=== PATIENT | male | born 1965 | race Caucasian/White ===

== ENCOUNTER 2017-12-11 11:03 | Observation (INO) ==
--- NOTE | 2017-12-11 11:27 | ED ---
HPI General Chief complaint: Eye Problems Stated complaint: Eye complaint/Evac Time Seen by Provider: 12/11/17 11:15 Source: patient Mode of arrival: EMS Limitations: no limitations History of Present Illness HPI Narrative: 52-year-old male presents the ED via EMS for evaluation of left eye pain. Onset just before arrival. 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 He states that he struck a piece of wood with a hammer and a large piece of the wood hit him in the face and the eye. He was not wearing prescription or safety glasses. On presentation he complains of 10/10 left eye pain, worse with ocular motion. He endorses photophobia. He endorses mild headache. He is unsure of the date of his last tetanus immunization. He denies chronic health problems and takes no daily medications. He admits that it has been years since he saw doctor. No treatment attempted before arrival. MD chief complaint: eye pain Onset description: sudden Duration: constant Location: left eye Eye Symptoms: burning, pain, foreign body sensation, blurry vision and photophobia Place: work Mechanism: direct trauma Severity: severe Severity scale (1-10): 10 If Pain, Quality: sharp Context: trauma Treatments Prior to Arrival: none Related Data Home Medications Medication Instructions Recorded Confirmed No Known Home Medications 12/11/17 12/11/17 Previous Rx's Medication Instructions Recorded amoxicillin-pot clavulanate 1 tab PO BID 14 Days #28 tab 12/12/17 [Augmentin] hydrocodone-acetaminophen 1 tab PO Q4H PRN #18 tab 12/12/17 Allergies Allergy/AdvReac Type Severity Reaction Status Date / Time No Known Allergies Allergy Verified 12/11/17 15:43 [facility] Medical History Medical History Patient denies medical problems (Acute) Social History Social History Substance History: Active Abuse and Unable to Obtain Second Hand Smoke Exposure: Yes Smoking Status: Current every day smoker Tobacco Type: Cigarettes Packs Per Day: 0.5 Cigarettes Per Day: 10.0 Years Smoked: 10 Pack-Years: 5.00 How Often Do You Have a Drink Containing Alcohol: Unable to Obtain (Patient answered "not much" and refused any further questioning.) Recent Travel in [facility] within the Last 8 Weeks: No Recent Out of Country Travel within the Last 8 Weeks: No Exam Narrative Exam Narrative: GENERAL: Well-nourished, well-developed anxious white male in no acute distress. SKIN: Warm and dry. HEAD: Normocephalic. Edema and ecchymosis below the left eye. EYES: No scleral icterus. PERRLA. EOMI. FOCUSED OS EXAM: There is a 1-2 mm sharp foreign body projecting into the eye near the pupil, slightly towards the 6 o'clock position. Exam limited due to the patient's pain. Please see Dr. Schroeder's note for full eye exam. ENT: Pearly mullins tympanic membranes bilaterally. Nasal mucosa is moist. Oropharynx without erythema, edema or exudate. NECK: Supple, trachea midline. No JVD or lymphadenopathy. CARDIOVASCULAR: Regular rate and rhythm without murmurs, gallops, or rubs. RESPIRATORY: Breath sounds clear and equal bilaterally. No accessory muscle use. GASTROINTESTINAL: Abdomen soft, non-tender, nondistended. + Bowel sounds MUSCULOSKELETAL: No cyanosis, or edema. Walks with a normal gait. Moves extremities spontaneously. BACK: Nontender without obvious deformity. No CVA tenderness. Course Initial Documented Vital Signs Temperature 97.8 F 12/11/17 11:15 Pulse Rate 68 12/11/17 11:15 Respiratory Rate 17 12/11/17 11:15 Blood Pressure 144/90 H 12/11/17 11:15 Pulse Oximetry 98 12/11/17 11:15 Last Documented Vital Signs Temperature 98.0 F 12/12/17 08:07 Pulse Rate 59 L 12/12/17 08:07 Respiratory Rate 18 12/12/17 08:59 Blood Pressure 131/74 12/12/17 08:07 Pulse Oximetry 95 12/12/17 08:07 Medical Decision Making HOSEA Attestation HOSEA supervised visit: Yes Attestation: I, Dr. Carlisle, have reviewed the advance practice practitioner's documentation and am in agreement, met with the patient face to face, made the diagnosis, and the medical decision making was done by me. *My assessment and Findings: Please see mid level provider note for full history , physical, and disposition. Patient was at work when a piece of wood flew into his L eye. He's c/o left eye pain. On exam, foreign body is visible in his left eye. c/o pain in his eye; therefore, exam somewhat limited. His EOMI and PEERL bilat. Unsure if tetanus status; therefore, will give tetanus shot, CT face/ orbits, and consult ophthalmology. [facility] Narrative Medical decision making narrative: 52-year-old male presents the ED for evaluation of left eye injury. Onset just before arrival. Patient states that he struck a piece of wood with a hammer and a large splinter bounce towards his eye. He states that he is been having 10/10 pain in the eye since then. Vitals reviewed. On exam there is periorbital edema and ecchymosis of the left eye. Left eye is injected and draining. One drop of proparacaine was applied. Patient allowed me to briefly examine the eye. There is a sharp, 1-2 mm object embedded in the surface of the eye near the pupil, slightly towards the 6 o'clock position. Exam was limited due to the patient's pain. Tetanus immunization was updated. I spoke with Dr. Schroeder, on-call package dyer. She evaluated the patient in the ED and suspects a penetrating foreign body. She plans to take the patient to the operating room. Please see her note for full details. Preoperative labs and testing was ordered. I discussed the plan with the patient who is agreeable. I spoke with the residents who agree to accept the patient to the medicine service under Dr. Barth. Please see medicine and ophthalmology notes for disposition. Lab Data Result diagrams: 12/11/17 13:00 12/12/17 04:35 Lab Results 12/11/17 12/11/17 12/11/17 Range/Units 13:00 13:00 17:50 WBC 8.3 (4.0-11.0) th/mm3 RBC 4.97 (4.50-5.90) mil/mm3 Hgb 15.5 (13.0-17.0) gm/dL Hct 46.0 (39.0-51.0) % MCV 92.6 (80.0-100.0) fL MCH 31.2 (27.0-34.0) pg MCHC 33.7 (32.0-36.0) % RDW 13.6 (11.6-17.2) % Plt Count 281 (150-450) th/mm3 MPV 7.3 (7.0-11.0) fL Neut % (Auto) 70.7 H (16.0-70.0) % Lymph % (Auto) 17.8 (9.0-44.0) % [place] % (Auto) 8.1 H (0.0-8.0) % Eos % (Auto) 2.6 (0.0-4.0) % Baso % (Auto) 0.8 (0.0-2.0) % Neut # (Auto) 5.8 (1.8-7.7) th/mm3 Lymph # (Auto) 1.5 (1.0-4.8) th/mm3 [place] # (Auto) 0.7 (0.0-0.9) th/mm3 Eos # (Auto) 0.2 (0.0-0.4) th/mm3 Baso # (Auto) 0.1 (0.0-0.2) th/mm3 WBC Differential . Differential Comment Auto diff final Sodium 140 (136-145) meq/L Potassium 5.0 (3.5-5.1) meq/L Chloride 108 H (98-107) meq/L Carbon Dioxide 21.2 (21.0-32.0) meq/L Anion Gap 11 (5-15) meq/L BUN 12 (7-18) mg/dL Creatinine 0.88 (0.60-1.30) mg/dL Estimated GFR Greater than 89 (>89) mL/min Random Glucose 110 H (74-106) mg/dL Calcium 8.7 (8.5-10.1) mg/dL Total Bilirubin 0.4 (0.2-1.0) mg/dL AST 19 (15-37) U/L ALT 24 (12-78) U/L Alkaline Phosphatase 69 (45-117) U/L Total Protein 7.6 (6.4-8.2) g/dL Albumin 3.9 (3.4-5.0) g/dL Urine Color Yellow (Yellw/Straw) Urine Clarity Clear (Clear) Urine pH 7.0 (5.0-8.5) Ur Specific Curtis 1.016 (1.002-1.035) Urine Protein Negative (Neg-Trace) mg/dL Urine Glucose (UA) Negative (Negative) mg/dL Urine Ketones Negative (Negative) mg/dL Urine Occult Blood Negative (Negative) Urine Nitrate Negative (Negative) Urine Bilirubin Negative (Negative) Urine Urobilinogen Less than 2 (Less than 2) mg/dL Ur Leukocyte Esterase Negative (Negative) Urine RBC 2 (0-3) /hpf Urine WBC 1 (0-5) /hpf Ur Squamous Epith Cells <1 (0-5) /hpf 12/12/17 Range/Units 04:35 WBC (4.0-11.0) th/mm3 RBC (4.50-5.90) mil/mm3 Hgb (13.0-17.0) gm/dL Hct (39.0-51.0) % MCV (80.0-100.0) fL MCH (27.0-34.0) pg MCHC (32.0-36.0) % RDW (11.6-17.2) % Plt Count (150-450) th/mm3 MPV (7.0-11.0) fL Neut % (Auto) (16.0-70.0) % Lymph % (Auto) (9.0-44.0) % [place] % (Auto) (0.0-8.0) % Eos % (Auto) (0.0-4.0) % Baso % (Auto) (0.0-2.0) % Neut # (Auto) (1.8-7.7) th/mm3 Lymph # (Auto) (1.0-4.8) th/mm3 [place] # (Auto) (0.0-0.9) th/mm3 Eos # (Auto) (0.0-0.4) th/mm3 Baso # (Auto) (0.0-0.2) th/mm3 WBC Differential Differential Comment Sodium 140 (136-145) meq/L Potassium 3.8 D (3.5-5.1) meq/L Chloride 107 (98-107) meq/L Carbon Dioxide 22.6 (21.0-32.0) meq/L Anion Gap 10 (5-15) meq/L BUN 9 (7-18) mg/dL Creatinine 0.87 (0.60-1.30) mg/dL Estimated GFR Greater than 89 (>89) mL/min Random Glucose 113 H (74-106) mg/dL Calcium 8.6 (8.5-10.1) mg/dL Total Bilirubin (0.2-1.0) mg/dL AST (15-37) U/L ALT (12-78) U/L Alkaline Phosphatase (45-117) U/L Total Protein (6.4-8.2) g/dL Albumin (3.4-5.0) g/dL Urine Color (Yellw/Straw) Urine Clarity (Clear) Urine pH (5.0-8.5) Ur Specific Curtis (1.002-1.035) Urine Protein (Neg-Trace) mg/dL Urine Glucose (UA) (Negative) mg/dL Urine Ketones (Negative) mg/dL Urine Occult Blood (Negative) Urine Nitrate (Negative) Urine Bilirubin (Negative) Urine Urobilinogen (Less than 2) mg/dL Ur Leukocyte Esterase (Negative) Urine RBC (0-3) /hpf Urine WBC (0-5) /hpf Ur Squamous Epith Cells (0-5) /hpf Imaging Data Radiologist's impression: ITS Impressions Face CT 12/11/17 11:43 CONCLUSION: 1. Periorbital left soft tissue swelling and some air within the post septal region. 2. No definite foreign body seen. Chest X-Ray 12/11/17 12:56 CONCLUSION: No acute Cardiopulmonary disease Discharge Plan Discharge Disposition Patient Disposition: 30 Still Patient Discharge Condition Condition: Stable Discharge Order Discharge Orders: Discharge Order (Routine); Ordered 12/12/17 Ordered By: Dhaval Vargas Discharge Details Anticipated Discharge Date: 12/12/17 Discharge Comment: Patient to follow up with Optho. today at 1 PM. Discharge Problem: Foreign body, intraocular, left eye Physicians Team ED Provider: Wandy Carlisle ED Midlevel Provider: Katerine Norwood Primary Care Provider: Primary Care Sybil Humphrey Attending Provider: Ollie Barth Other Providers: Doris Schroeder Status ED Status: Left Department Discharge Information Discharge Date/Time: 12/11/17 14:44
[2017-12-11] MEDS ORDERED: Tetanus/Diphtheria Toxoid Adult Vaccine Inj 0.5 ML Vial IM ONE (11:42)
[2017-12-11] MEDS ORDERED: Lidocaine PF 1% Inj 5 ML Syringe INFILTRATN ONE (12:34)
[2017-12-11] MEDS ORDERED: Phenylephrine/NS 1000 MCG/10ML Syringe IV.PUSH ONE (12:34)
--- NOTE | 2017-12-11 13:12 | P.CON ---
History of Present Illness Service: Ophthalmology Reason for Consult: foreign body left eye History of Present Illness: 52 yo M presents to the ED for evaluation of left eye pain. Patient states that he was at work and he struck a piece of wood with a hammer and a large piece of the wood hit him in the left eye. He was not wearing safety glasses. He complains of 10/10 left eye pain and decreased vision. No significant ocular history. [facility] - History History Provided By: Patient - Medical History Medical History: Medical History (Last Reviewed 12/11/17 @ 11:33 by Alfreda Romo) Patient denies medical problems - Surgical History Surgical History: Surgical History (Last Reviewed 12/11/17 @ 11:33 by Alfreda Romo) No history of previous surgery - Tobacco History Tobacco Use In Past 30 Days: Yes Smoking Status: Current every day smoker Tobacco Type: Cigarettes - Alcohol History How Often Do You Have a Drink Containing Alcohol: 4 or more times a week - Substance Use History Substance History: Active Abuse - Substance Use Type Marijuana Status: Active Route Used: By Mouth Reason for Use: Calm Down - Travel History Recent Travel in the [facility] Within the Last 8 Weeks: No Recent Travel Out of the Country Within the Last 8 Weeks: No - Immunization History Tetanus Immunization: >5 Years Hx Influenza Vaccine This Season: No Medications and Allergies Allergies Allergy/AdvReac Type Severity Reaction Status Date / Time No Known Allergies Allergy Unverified 12/11/17 11:14 Home Medications Medication Instructions Recorded Confirmed Type No Known Home Medications 12/11/17 12/11/17 History Physical Exam Vital signs: Vital Signs 12/11/17 11:15 12/11/17 12:31 Temperature 97.8 F Pulse Rate 68 Respiratory Rate 17 16 Blood Pressure 144/90 H Pulse Oximetry 98 Intake & Output 12/10/17 12/11/17 12/11/17 18:59 06:59 18:59 Weight 86 kg - Detailed Eye Exam Comments: Va cc at near OD 20/20, OS 20/400 EOM full OU CVF full OD, unable OS Pupils 2-1 OD, 5mm fixed OS IOP deferred Anterior exam OD - normal eyelid, C/S W&Q, K clear, AC deep, pupil round, lens clear OS - normal eyelid, conj injection with laceration inferiorly and large piece of wood embedded, K perforation centrally with piece of wood, AC deep, pupil dilated lens clear Assessment and Plan - Assessment (1) Foreign body, intraocular, left eye Code(s): S05.52XA - Penetrating wound with foreign body of left eyeball, initial encounter Status: Acute (2) Ruptured globe of left eye Code(s): S05.32XA - Ocular laceration without prolapse or loss of intraocular tissue, left eye, initial encounter Status: Acute Plan: NPO. CT Orbits. Consent for removal of foreign body and repair of ruptured globe left eye. Admit for 23 hour Obs. Start Vanc 1g BID and Unasyn 3g q6h. Scheduled for approx 8pm tonight.
--- NOTE | 2017-12-11 13:18 | XR ---
EXAM DATE: 12/11/2017 1:15 PM EDT AGE/SEX: 52 years / Male INDICATIONS: Evaluate for pneumonia,pneumothorax or communicable disease. CLINICAL DATA: This is the patient's initial encounter. Patient reports that signs and symptoms have been present for 1 day and indicates a pain score of 0/10. MEDICAL/SURGICAL HISTORY: None. None. COMPARISON: No prior exams available for comparison. FINDINGS: A single AP view of the chest demonstrates the lungs to be symmetrically aerated without evidence of mass, infiltrate or effusion. The cardiomediastinal contours are unremarkable. Osseous structures a re intact. CONCLUSION: No acute Cardiopulmonary disease Electronically signed by: Lukasz Bond MD 12/11/2017 1:17 PM EDT
[2017-12-11 13:46] LABS: Baso # (Auto) 0.1 th/mm3 (0.0-0.2); Baso % (Auto) 0.8 % (0.0-2.0); Eos # (Auto) 0.2 th/mm3 (0.0-0.4); Eos % (Auto) 2.6 % (0.0-4.0); Hemoglobin 15.5 gm/dL (13.0-17.0); Lymph # (Auto) 1.5 th/mm3 (1.0-4.8); Lymph % (Auto) 17.8 % (9.0-44.0); Mean Corpuscular HGB Conc 33.7 % (32.0-36.0); Mean Corpuscular Hemoglobin 31.2 pg (27.0-34.0); Mean Corpuscular Volume 92.6 fL (80.0-100.0); Mean Platelet Volume 7.3 fL (7.0-11.0); Mono # (Auto) 0.7 th/mm3 (0.0-0.9); Mono % (Auto) 8.1 % (0.0-8.0); Neut # (Auto) 5.8 th/mm3 (1.8-7.7); Neut % (Auto) 70.7 % (16.0-70.0); Platelet Count 281 th/mm3 (150-450); Red Blood Count 4.97 mil/mm3 (4.50-5.90); Red Cell Distribution Width 13.6 % (11.6-17.2); White Blood Count 8.3 th/mm3 (4.0-11.0)
--- NOTE | 2017-12-11 13:48 | P.HPFP ---
History of Present Illness Primary Care Physician: No Primary Care Physician <Ollie Barth 12/12/17 16:14> No Primary Care Physician <Brian Fraire 12/11/17 13:48> History of Present Illness: Patient was seen in the ED by myself and Dr. Evans. Unfortunately, this patient refused to give any medical history because of his pain. He stated he had a splitting headache and refused to answer any further questions and threatened to leave. Per ED note this is a 52 year old M brought in by EMS for evaluation of injury to the left eye. The patient was working at a [employer] job and while hammering was struck in the left eye and face by a piece of wood. He was not wearing eye protection at the time. On arrival the patient reported to be in a 10/10 for pain and was experiencing photophobia. He also endorsed a "splitting" headache at the time of interview. In the ED his course was as follows; One drop of proparacaine was applied and tetanus immunization was updated. This patient is being admitted to the medicine team for observation in the setting of potential optho surgery. All other symptoms negative except as stated per review of systems. <Brian Fraire 12/11/17 15:10> - Diagnosis (1) Foreign body, intraocular, left eye (2) Ruptured globe of left eye (3) Alcohol abuse (4) Nutrition, metabolism, and development symptoms <Ollie Barth 12/12/17 16:14> (1) Foreign body, intraocular, left eye (2) Ruptured globe of left eye (3) Alcohol abuse (4) Nutrition, metabolism, and development symptoms <Brian Fraire 12/12/17 14:23> - Inpatient Certification If this patient has been admitted as an Inpatient: I certify that the inpatient services were ordered in accordance with Medicare regulations governing the order. This includes certification that hospital inpatient services are reasonable and necessary and in the case of services not specified as inpatient-only under 42 CFR 419.22(n), that they are appropriately provided as inpatient services in accordance to with the 2-midnight benchmark under 43 CFR 412.3(e) <Ollie Barth 12/12/17 16:14> I certify that the inpatient services were ordered in accordance with Medicare regulations governing the order. This includes certification that hospital inpatient services are reasonable and necessary and in the case of services not specified as inpatient-only under 42 CFR 419.22(n), that they are appropriately provided as inpatient services in accordance to with the 2-midnight benchmark under 43 CFR 412.3(e) <Brian Fraire 12/11/17 13:48> Review of Systems other (Patient refused to answer any further questions due to pain.) <Brian Fraire 12/11/17 14:57> Constitutional: Reports chills, Reports fever(s), Reports headache(s), Denies weakness <Brian Fraire 12/11/17 13:48> Eyes: Reports blurry vision, Reports change in vision, Reports loss of vision <Brian Fraire 12/11/17 14:57> Comments: Patient reports extreme pain and loss of vision in his left eye. Right eye is unaffected. <Brian Fraire 12/11/17 13:48> PMFSH - History History Provided By: Patient <Brian Fraire 12/11/17 13:48> - Medical / Surgical Hx Neg / Unobtainable Medical Problems Denied: Unable to Obtain <Brian Fraire 12/11/17 14:57> Surgical History: Unable to Obtain <Brian Fraire 12/11/17 14:57> - Medical History Medical History: Medical History (Last Reviewed 12/11/17 @ 15:43 by Cynthia Gutierrez, MICHELA) Patient denies medical problems <Ollie Barth 12/12/17 11:51> Medical History (Last Reviewed 12/11/17 @ 15:43 by Cynthia Gutierrez, RN) Patient denies medical problems <Fraire,Jose Lilibeth 12/11/17 18:02> - Surgical History Surgical History: Surgical History (Last Reviewed 12/11/17 @ 15:43 by Cynthia Gutierrez, RN) No history of previous surgery <Ollie Barth 12/12/17 11:51> Surgical History (Last Reviewed 12/11/17 @ 15:43 by Cynthia Gutierrez, RN) No history of previous surgery <JunoBrian Lilibeth Concepcion 12/11/17 18:02> - Tobacco History Tobacco Use In Past 30 Days: Yes <Brian Fraire 12/11/17 13:48> Smoking Status: Current every day smoker <Brian Fraire 12/11/17 13:48> Tobacco Type: Cigarettes <Brian Fraire Lilibeth 12/11/17 13:48> Packs Per Day: 0.5 <Brian Fraire Lilibeth 12/11/17 13:48> Years Smoked: 10 <Brian Fraire 12/11/17 13:48> - Alcohol History How Often Do You Have a Drink Containing Alcohol: Unable to Obtain (Patient answered "not much" and refused any further questioning.) <Brian Fraire Jamey 09/25 14:57> - Substance Use History Substance History: Active Abuse, Unable to Obtain <Brian Fraire Lilibeth Concepcion 12/11/17 14 :57> - Substance Use Type Marijuana Status: Active <Brian Fraire 12/11/17 15:10> Route Used: By Mouth <Brian Fraire Lilibeth 12/11/17 15:10> Reason for Use: Calm Down <Brian Fraire Lilibeth Concepcion 12/11/17 15:10> - Travel History Recent Travel in the [facility] Within the Last 8 Weeks: No <Brian Fraire Jamey 13:48> Recent Travel Out of the Country Within the Last 8 Weeks: No <Brian Fraire Jamey 12/11/17 13:48> - Immunization History Tetanus Immunization: Unable to Assess <Brian Fraire Lilibeth Concepcion 12/11/17 14:57> Hx Influenza Vaccine This Season: Unable to Assess <Brian Fraire Lilibeth 12/11/17 14:57> Medications and Allergies Allergies Allergy/AdvReac Type Severity Reaction Status Date / Time No Known Allergies Allergy Verified 12/11/17 15:43 <Ollie Barth 12/12/17 16:14> Home Medications Medication Instructions Recorded Confirmed Type No Known Home Medications 12/11/17 12/11/17 History <Ollie Barth 12/12/17 16:14> Active Medications: Active Medications Hydrocodone Bitart/Acetaminophen ([place] 5/325) 1 tab PO Q4H PRN PRN Reason: PAIN SCALE 3 TO 5 Hydrocodone Bitart/Acetaminophen ([place] 10/325) 1 tab PO Q4H PRN PRN Reason: PAIN SCALE 6 TO 10 Last Admin: 12/12/17 08:59 Dose: 1 tab Al Hydroxide/Mg Hydroxide (Milk Of Magnesia Liq) 30 ml PO Q12H PRN PRN Reason: Mild Constipation Bisacodyl (Dulcolax Supp) 10 mg RECTAL DAILY PRN PRN Reason: SEVERE CONSITIPATION Flumazenil (Romazecon Inj) 0.2 mg IV.PUSH Q1M PRN PRN Reason: OVERSEDATION Haloperidol Lactate (Haldol Inj) 1 mg IV.PUSH Q15M PRN PRN Reason: for severe agitation Sodium Chloride (Ns Inj) 1,000 mls @ 125 mls/hr IV.CONT .Q8H JERI Last Admin: 12/12/17 05:56 Dose: 125 mls/hr Thiamine HCl 100 mg/ Sodium (Chloride) 101 mls @ 100 mls/hr IV.SIG DAILY JERI Stop: 12/13/17 10:01 Last Admin: 12/12/17 11:12 Dose: 100 mls/hr Ampicillin Sodium/Sulbactam (Sodium 3 gm/ Sodium Chloride) 100 mls @ 200 mls/ hr IV.SIG Q6H JERI Last Admin: 12/12/17 11:13 Dose: 200 mls/hr Lactulose (Lactulose Liq) 30 ml PO DAILY PRN PRN Reason: SEVERE CONSITIPATION Lorazepam (Ativan) 1 mg PO Q4H PRN PRN Reason: for CIWA 8-10 Lorazepam (Ativan) 2 mg PO Q2H PRN PRN Reason: for CIWA 11-14 Lorazepam (Ativan Inj) 2 mg IV.PUSH Q2H PRN PRN Reason: for CIWA 11-14 Lorazepam (Ativan Inj) 2 mg IV.PUSH Q1H PRN PRN Reason: for CIWA 15-20 Lorazepam (Ativan Inj) 2 mg IV.PUSH Q15M PRN PRN Reason: for CIWA > 20 Lorazepam (Ativan Inj) 1 mg IV.PUSH Q4H PRN PRN Reason: for CIWA 8-10 Miscellaneous Information (Misc Nursing Information) 1 each OTHER UNSCH PRN PRN Reason: SEE LABEL COMMENTS Stop: 12/12/17 23:04 Morphine Sulfate (Morphine Inj) 2 mg IV.PUSH Q3H PRN PRN Reason: BREAKTHROUGH PAIN Last Admin: 12/11/17 15:49 Dose: 2 mg Naloxone HCl (Narcan Inj) 0.4 mg IV.PUSH UNSCH PRN PRN Reason: SEE LABEL COMMENTS Senna/Docusate Sodium (Naz-Colace) 1 tab PO BID [facility] Last Admin: 12/12/17 08:59 Dose: 1 tab Sennosides (Senokot) 17.2 mg PO Q12H PRN PRN Reason: Moderate Constipation Temazepam (Restoril) 15 mg PO HS PRN PRN Reason: INSOMNIA Thiamine HCl (Vitamin B1) 100 mg PO DAILY [facility] <Ollie Barth R - 12/12/17 11:51> Exam Vital signs: Vital Signs 12/11/17 12:31 12/11/17 12:50 12/11/17 14:30 Temperature 97.9 F 97.7 F Pulse Rate 66 78 Respiratory Rate 16 17 16 Blood Pressure 140/78 140/78 Pulse Oximetry 99 99 12/11/17 16:37 12/11/17 22:35 12/11/17 22:45 Temperature 97.8 F 97.6 F Pulse Rate 63 82 79 Respiratory Rate 24 14 14 Blood Pressure 164/101 H 175/92 H 159/86 H Pulse Oximetry 95 99 98 12/11/17 23:00 12/11/17 23:15 12/11/17 23:30 Temperature 98.1 F Pulse Rate 78 77 73 Respiratory Rate 12 12 19 Blood Pressure 151/88 H 139/88 125/73 Pulse Oximetry 98 97 12/12/17 00:00 12/12/17 08:07 12/12/17 08:59 Temperature 97.7 F 98.0 F Pulse Rate 70 59 L Respiratory Rate 16 16 18 Blood Pressure 128/78 131/74 Pulse Oximetry 93 L 95 Intake & Output 12/11/17 12/12/17 12/12/17 18:59 06:59 18:59 Intake Total 2251 / 2251 600 / 600 Output Total 5 / 5 Balance 2246 / 2246 600 / 600 Weight 86 kg Intake: IV 1201 / 1201 600 / 600 NS Inj 1,000 ML @ 125 mls/hr IV 1000 / 1000 .CONT .Q8H [facility] Rx#:[id number] Unasyn Inj 3 GM In NS Inj 100 100 / 100 100 / 100 ML @ 200 mls/hr IV.SIG Q6H [facility]ERI Rx#:[id number] Thiamine Inj 100 MG In NS Inj 101 / 101 100 ML @ 100 mls/hr IV.SIG DAILY [facility] Rx#:[id number] Vancomycin Inj 1,000 MG In NS 500 / 500 Inj 250 ML @ 250 mls/hr IV.SIG Q12H [facility] Rx#:[id number] Anesthesia Amount 1050 / 1050 Output: Estimated Blood Loss 5 / 5 <Ollie Barth R - 12/12/17 16:14> Vital Signs 12/11/17 11:15 12/11/17 12:31 12/11/17 12:50 Temperature 97.8 F 97.9 F Pulse Rate 68 66 Respiratory Rate 17 16 17 Blood Pressure 144/90 H 140/78 Pulse Oximetry 98 99 Intake & Output 12/10/17 12/11/17 12/11/17 18:59 06:59 18:59 Weight 86 kg <Brian Fraire 12/11/17 13:48> - Constitutional severe distress, obese, agitated <Brian Fraire 12/11/17 14:57> - Routine HEENT Exam Head: Present: normocephalic <Brian Fraire 12/11/17 14:57> Comments: Patient had an abrasion over left upper and lower eye lid. Upon examination of the left the patient had blood in the lower left conjunctive as well as what appeared to be a light parikh to brown foreign object that protruded less than 1 mm but spanned approx 2-3 mm in length. The object appeared to have been imbedded in the 5 o'clock position and crossed the boundaries between the pupil and iris. The right eye showed no injury and was able to track past midlines but exam was cut short by patient's unwillingness to cooperate with exam. <Brian Fraire 12/11/17 15:17> - Detailed Eye Exam Eyelids: Left erythema, Left laceration, Right normal inspection <Brian Fraire 12/11/17 15:17> Pupils: Left irregular, Right regular, round, Right reactive <Brian Fraire 12/11/17 15:17> Sclerae/Conjunctivae: Left foreign body, Left hemorrhage, Left injection, Right normal inspection <Brian Fraire 12/11/17 15:17> - Routine Chest/Breast/Axilla Exam Chest wall: Absent: tenderness <Brian Fraire 12/11/17 14:57> - Routine Respiratory Exam Present: CTA bilaterally. Absent: accessory muscle use, respiratory distress, rhonchi, stridor, wheezes, crackles, diminished air movement <Brian Fraire 12/11/17 14:57> - Routine Cardiovascular Exam Present: RRR, S1, S2. Absent: murmur, gallop, rubs <Brian Fraire 12/11/17 14:57> - Routine Abdominal Exam Present: soft. Absent: tenderness, distended, rebound, guarding <Brian Fraire 12/11/17 14:57> - Routine Extremities Exam Absent: edema <Brian Fraire 12/11/17 14:57> - Routine Neurological Exam Present: alert. Absent: vision grossly intact <Brian Fraire 12/11/17 14:57 > - Routine Psychiatric Exam Present: anxious, agitated. Absent: cooperative <Brian Fraire 12/11/17 14: 57> Results - Labs Result diagrams: 12/11/17 13:00 12/12/17 04:35 <Ollie Barth - 12/12/17 16:14> Abnormal lab results 12/11/17 12/11/17 12/12/17 Range/Units 13:00 13:00 04:35 Neut % (Auto) 70.7 H (16.0-70.0) % Nicholas % (Auto) 8.1 H (0.0-8.0) % Chloride 108 H (98-107) meq/L Random Glucose 110 H 113 H (74-106) mg/dL Short CBC 12/11/17 Range/Units 13:00 WBC 8.3 (4.0-11.0) th/mm3 Hgb 15.5 (13.0-17.0) gm/dL Hct 46.0 (39.0-51.0) % Plt Count 281 (150-450) th/mm3 BMP 12/11/17 12/12/17 13:00 04:35 Sodium 140 140 Potassium 5.0 3.8 D Chloride 108 H 107 Carbon Dioxide 21.2 22.6 BUN 12 9 Creatinine 0.88 0.87 Calcium 8.7 8.6 Liver Function 12/11/17 Range/Units 13:00 Total Bilirubin 0.4 (0.2-1.0) mg/dL AST 19 (15-37) U/L ALT 24 (12-78) U/L Alkaline Phosphatase 69 (45-117) U/L Albumin 3.9 (3.4-5.0) g/dL Urine 12/11/17 Range/Units 17:50 Urine Color Yellow (Yellw/Straw) Urine Clarity Clear (Clear) Urine pH 7.0 (5.0-8.5) Ur Specific [place] 1.016 (1.002-1.035) Urine Protein Negative (Neg-Trace) mg/dL Urine Glucose (UA) Negative (Negative) mg/dL <Ollie Barth R - 12/12/17 16:14> Laboratory Results - last 12 hr 12/11/17 12/11/17 13:00 13:00 WBC 8.3 RBC 4.97 Hgb 15.5 Hct 46.0 MCV 92.6 MCH 31.2 MCHC 33.7 RDW 13.6 Plt Count 281 MPV 7.3 Neut % (Auto) 70.7 H Lymph % (Auto) 17.8 [place] % (Auto) 8.1 H Eos % (Auto) 2.6 Baso % (Auto) 0.8 Neut # (Auto) 5.8 Lymph # (Auto) 1.5 [place] # (Auto) 0.7 Eos # (Auto) 0.2 Baso # (Auto) 0.1 WBC Differential . Differential Comment Auto diff final Sodium 140 Potassium 5.0 Chloride 108 H Carbon Dioxide 21.2 Anion Gap 11 BUN 12 Creatinine 0.88 Estimated GFR Greater than 89 Random Glucose 110 H Calcium 8.7 Total Bilirubin 0.4 AST 19 ALT 24 Alkaline Phosphatase 69 Total Protein 7.6 Albumin 3.9 <Brian Fraire O - 12/11/17 15:10> - Imaging Impressions Face CT 12/11/17 11:43 CONCLUSION: 1. Periorbital left soft tissue swelling and some air within the post septal region. 2. No definite foreign body seen. Chest X-Ray 12/11/17 12:56 CONCLUSION: No acute Cardiopulmonary disease <Oslos,Ollie R - 12/12/17 16:14> Impressions Face CT 12/11/17 11:43 CONCLUSION: 1. Periorbital left soft tissue swelling and some air within the post septal region. 2. No definite foreign body seen. Chest X-Ray 12/11/17 12:56 CONCLUSION: No acute Cardiopulmonary disease <Brian Fraire - 12/11/17 14:57> Caprini VTE Risk Assessment Caprini VTE Risk Assessment: Moderate/High Risk (score >= 2) <Brian Fraire - 12/12/17 14:24> Caprini Risk Assessment Model: Point Value = 1 Point Value = 2 Point Value = 3 Point Value = 5 Age 41-60 Minor surgery BMI > 25 kg/m2 Swollen legs Varicose veins or History of unexplained or recurrent spontaneous Oral contraceptives or hormone replacement Sepsis (< 1 month) Serious lung disease, including pneumonia (< 1 month) Abnormal pulmonary function Acute myocardial infarction Congestive heart failure (< 1 month) History of inflammatory bowel disease Medical patient at bed rest Age 61-74 Arthroscopic surgery Major open surgery (> 45 min) Laparoscopic surgery (> 45 min) Malignancy Confined to bed (> 72 hours) Immobilizing plaster cast Central venous access Age >= 75 History of VTE Family history of VTE Factor V Leiden Prothrombin [id number] Lupus anticoagulant Anticardiolipin antibodies Elevated serum homocysteine Heparin-induced thrombocytopenia Other congenital or acquired thrombophilia Stroke (< 1 month) Elective arthroplasty Hip, pelvis, or leg fracture Acute spinal cord injury (< 1 month) <Ollie Barth R - 12/12/17 16:14> Point Value = 1 Point Value = 2 Point Value = 3 Point Value = 5 Age 41-60 Minor surgery BMI > 25 kg/m2 Swollen legs Varicose veins or History of unexplained or recurrent spontaneous Oral contraceptives or hormone replacement Sepsis (< 1 month) Serious lung disease, including pneumonia (< 1 month) Abnormal pulmonary function Acute myocardial infarction Congestive heart failure (< 1 month) History of inflammatory bowel disease Medical patient at bed rest Age 61-74 Arthroscopic surgery Major open surgery (> 45 min) Laparoscopic surgery (> 45 min) Malignancy Confined to bed (> 72 hours) Immobilizing plaster cast Central venous access Age >= 75 History of VTE Family history of VTE Factor V Leiden Prothrombin [id number] Lupus anticoagulant Anticardiolipin antibodies Elevated serum homocysteine Heparin-induced thrombocytopenia Other congenital or acquired thrombophilia Stroke (< 1 month) Elective arthroplasty Hip, pelvis, or leg fracture Acute spinal cord injury (< 1 month) <Brian Fraire O 12/12/17 14:24> Prophylaxis Regimen: Total Risk Factor Score Risk Level Prophylaxis Regimen 0-1 Low Early ambulation 2 Moderate Order ONE of the following: *Sequential Compression Device (SCD) *Heparin 5000 units SQ BID 3-4 Higher Order ONE of the following medications: *Heparin 5000 units SQ TID *Enoxaparin/Lovenox 40 mg SQ daily (WT < 150 kg, CrCl > 30 mL/min) *Enoxaparin/Lovenox 30 mg SQ daily (WT < 150 kg, CrCl > 10-29 mL/min) *Enoxaparin/Lovenox 30 mg SQ BID (WT < 150 kg, CrCl > 30 mL/min) AND/OR *Sequential Compression Device (SCD) 5 or more Highest Order ONE of the following medications: *Heparin 5000 units SQ TID (Preferred with Epidurals) *Enoxaparin/Lovenox 40 mg SQ daily (WT < 150 kg, CrCl > 30 mL/min) *Enoxaparin/Lovenox 30 mg SQ daily (WT < 150 kg, CrCl > 10-29 mL/min) *Enoxaparin/Lovenox 30 mg SQ BID (WT < 150 kg, CrCl > 30 mL/min) AND *Sequential Compression Device (SCD) <Ollie Barth R 12/12/17 16:14> Total Risk Factor Score Risk Level Prophylaxis Regimen 0-1 Low Early ambulation 2 Moderate Order ONE of the following: *Sequential Compression Device (SCD) *Heparin 5000 units SQ BID 3-4 Higher Order ONE of the following medications: *Heparin 5000 units SQ TID *Enoxaparin/Lovenox 40 mg SQ daily (WT < 150 kg, CrCl > 30 mL/min) *Enoxaparin/Lovenox 30 mg SQ daily (WT < 150 kg, CrCl > 10-29 mL/min) *Enoxaparin/Lovenox 30 mg SQ BID (WT < 150 kg, CrCl > 30 mL/min) AND/OR *Sequential Compression Device (SCD) 5 or more Highest Order ONE of the following medications: *Heparin 5000 units SQ TID (Preferred with Epidurals) *Enoxaparin/Lovenox 40 mg SQ daily (WT < 150 kg, CrCl > 30 mL/min) *Enoxaparin/Lovenox 30 mg SQ daily (WT < 150 kg, CrCl > 10-29 mL/min) *Enoxaparin/Lovenox 30 mg SQ BID (WT < 150 kg, CrCl > 30 mL/min) AND *Sequential Compression Device (SCD) <Brian Fraire O - 12/11/17 13:48> Assessment and Plan - Assessment (1) Foreign body, intraocular, left eye Code(s): S05.52XA - Penetrating wound with foreign body of left eyeball, initial encounter Status: Acute (2) Ruptured globe of left eye Code(s): S05.32XA - Ocular laceration without prolapse or loss of intraocular tissue, left eye, initial encounter Status: Acute (3) Alcohol abuse Code(s): F10.10 - Alcohol abuse, uncomplicated Status: Suspected (4) Nutrition, metabolism, and development symptoms Code(s): R63.8 - Other symptoms and signs concerning food and fluid intake Status: Acute <KikomikeOllie R - 12/12/17 16:14> (1) Foreign body, intraocular, left eye Code(s): S05.52XA - Penetrating wound with foreign body of left eyeball, initial encounter Status: Acute (2) Ruptured globe of left eye Code(s): S05.32XA - Ocular laceration without prolapse or loss of intraocular tissue, left eye, initial encounter Status: Acute (3) Alcohol abuse Code(s): F10.10 - Alcohol abuse, uncomplicated Status: Suspected (4) Nutrition, metabolism, and development symptoms Code(s): R63.8 - Other symptoms and signs concerning food and fluid intake Status: Acute Plan: Fluids: 125ml/hr NS Electrolytes: Within normal limits, replete as needed. Nutrition: NPO pending optho surgery. DVT Prophylaxis: SCDs <Brian Fraire - 12/12/17 14:23> - Assessment and Plan 52 yo M presents to the ED for evaluation of left eye pain. Patient states that he was at work and he struck a piece of wood with a hammer and a large piece of the wood hit him in the left eye. This patient has a noticeable foreign object penetrating and rupturing the left globe. While in the ED, Dr. Schroeder was consulted and recommended and received patient consent for surgical removal of object. - Keep NPO pending surgery - Follow Optho and surgical recommendation for removal of foreign object. - Per Optho continue Vanc 1g BID and Unasyn 3g q6h - Continue pain management via PRN medications ordered - Continue IV fluid - Follow CIWA protocol until alcohol abuse can be reliably ruled out <Brian Fraire O - 12/11/17 15:10> - Attending Attestation THIS CASE WAS DISCUSSED WITH THE RESIDENT PHYSICIANS. I HAVE REVIEWED THE RECORD AND AGREE WITH THE ABOVE NOTE AND PLAN OF CARE WAS DISCUSSED. I HAVE AUTHORIZED THE ORDER FOR ADMISSION TO AN IN-PATIENT STATUS. <Ollie Barth R - 12/12/17 11:51>
[2017-12-11] MEDS ORDERED: Temazepam 15 MG Capsule PO PRN (13:59)
[2017-12-11] MEDS ORDERED: Bisacodyl 10 MG Supp RECTAL PRN (13:59)
[2017-12-11] MEDS ORDERED: Naloxone Inj 0.4 MG/ML Vial IV.PUSH PRN (14:06)
[2017-12-11] MEDS ORDERED: Morphine Inj 4 MG/ML Vial IV.PUSH PRN (14:06)
[2017-12-11] MEDS ORDERED: Ibuprofen 400 MG Tablet PO PRN (14:06)
[2017-12-11 14:07] LABS: Albumin 3.9 g/dL (3.4-5.0); Anion Gap 11 meq/L (5-15); Aspartate Aminotransferase 19 U/L (15-37); Blood Urea Nitrogen 12 mg/dL (7-18); Calcium 8.7 mg/dL (8.5-10.1); Carbon Dioxide 21.2 meq/L (21.0-32.0); Chloride 108 meq/L (98-107); Glomerular Filtration Rate Greater Than 89 mL/min (>89); Glucose,Random 110 mg/dL (74-106); Sodium 140 meq/L (136-145)
[2017-12-11 14:10] LABS: Alanine Aminotransferase 24 U/L (12-78); Alkaline Phosphatase 69 U/L (45-117); Total Protein 7.6 g/dL (6.4-8.2)
[2017-12-11] MEDS ORDERED: Haloperidol Inj 5 MG/ML Ampul IV.PUSH PRN (14:19)
[2017-12-11] MEDS ORDERED: LORazepam 1 MG Tablet PO PRN (14:19)
[2017-12-11] MEDS: Sod Chloride 0.9% Inj 1,000 ML IV.CONT SCH ×2 (14:24→23:05)
[2017-12-11] MEDS: Thiamine Inj 100 MG in Sodium Chlor 0.9% Inj 100 ML IV.SIG SCH (16:29)
[2017-12-11 18:32] LABS: Bilirubin,Urine Negative (Negative); Clarity,Urine Clear (Clear); Color,Urine Yellow (Yellw/Straw); Glucose,Urine (UA) Negative (Negative); Leukocyte Esterase,Urine Negative (Negative); Nitrite,Urine Negative (Negative); Specific Gravity,Urine 1.016 (1.002-1.035); Squamous Epithelial Cell,Urine <1 /hpf (0-5)
[2017-12-11] MEDS ORDERED: Balanced Salt Opth Irrigation 15 APPLIC/15 ML Bottle ONE (19:45)
[2017-12-11] MEDS ORDERED: Tobramycin/Dexamethasone Opth Drops 5 ML Bottle ONE (19:46)
[2017-12-11] MEDS ORDERED: Ampicillin/Sulbactam Inj 3 GM in Sodium Chloride 0.9% Inj 100 ML IV.SIG SCH (20:00)
[2017-12-11] MEDS: Vancomycin Inj 1,000 MG in Sodium Chlor 0.9% Inj 250 ML IV.SIG SCH (20:56)
--- NOTE | 2017-12-11 22:39 | P.PN ---
Subjective Interval history: s/p removal of wooden foreign body and ruptured globe repair left eye Physical Exam Vital signs: Vital Signs 12/11/17 11:15 12/11/17 12:31 12/11/17 12:50 Temperature 97.8 F 97.9 F Pulse Rate 68 66 Respiratory Rate 17 16 17 Blood Pressure 144/90 H 140/78 Pulse Oximetry 98 99 12/11/17 14:30 12/11/17 16:37 Temperature 97.7 F 97.8 F Pulse Rate 78 63 Respiratory Rate 16 24 Blood Pressure 140/78 164/101 H Pulse Oximetry 99 95 Intake & Output 12/11/17 12/11/17 12/12/17 06:59 18:59 06:59 Intake Total 101 / 101 Balance 101 / 101 Weight 86 kg Intake: IV 101 / 101 Thiamine Inj 100 MG In NS Inj 101 / 101 100 ML @ 100 mls/hr IV.SIG DAILY [facility] Rx#:[id number] Results - Labs CBC & Chem 7: 12/11/17 13:00 12/11/17 13:00 Laboratory Results - last 24 hr 12/11/17 12/11/17 12/11/17 13:00 13:00 17:50 WBC 8.3 RBC 4.97 Hgb 15.5 Hct 46.0 MCV 92.6 MCH 31.2 MCHC 33.7 RDW 13.6 Plt Count 281 MPV 7.3 Neut % (Auto) 70.7 H Lymph % (Auto) 17.8 [place] % (Auto) 8.1 H Eos % (Auto) 2.6 Baso % (Auto) 0.8 Neut # (Auto) 5.8 Lymph # (Auto) 1.5 [place] # (Auto) 0.7 Eos # (Auto) 0.2 Baso # (Auto) 0.1 WBC Differential . Differential Comment Auto diff final Sodium 140 Potassium 5.0 Chloride 108 H Carbon Dioxide 21.2 Anion Gap 11 BUN 12 Creatinine 0.88 Estimated GFR Greater than 89 Random Glucose 110 H Calcium 8.7 Total Bilirubin 0.4 AST 19 ALT 24 Alkaline Phosphatase 69 Total Protein 7.6 Albumin 3.9 Urine Color Yellow Urine Clarity Clear Urine pH 7.0 Ur Specific [place] 1.016 Urine Protein Negative Urine Glucose (UA) Negative Urine Ketones Negative Urine Occult Blood Negative Urine Nitrate Negative Urine Bilirubin Negative Urine Urobilinogen Less than 2 Ur Leukocyte Esterase Negative Urine RBC 2 Urine WBC 1 Ur Squamous Epith Cells <1 - Imaging Impressions Face CT 12/11/17 11:43 CONCLUSION: 1. Periorbital left soft tissue swelling and some air within the post septal region. 2. No definite foreign body seen. Chest X-Ray 12/11/17 12:56 CONCLUSION: No acute Cardiopulmonary disease Assessment and Plan - Assessment (1) Foreign body, intraocular, left eye Code(s): S05.52XA - Penetrating wound with foreign body of left eyeball, initial encounter Status: Acute (2) Ruptured globe of left eye Code(s): S05.32XA - Ocular laceration without prolapse or loss of intraocular tissue, left eye, initial encounter Status: Acute Plan: s/p removal of foreign body and repair of ruptured globe left eye. Cont Vanc 1g BID and Unasyn 3g q6h. Keep eye patch on. Ok to discharge tomorrow morning on Augmentin 875mg BID x 14 days. Follow up in office after discharge - 10/25 at 1:00pm ([address] Will remove eye patch in the office and discuss what eye drops to start at that time.
[2017-12-11] MEDS: Ampicillin/Sulbactam Inj 3 GM in Sodium Chloride 0.9% Inj 100 ML IV.SIG SCH (22:52)
[2017-12-11] MEDS: Senna/Docusate Sodium 8.6/50 MG Tablet PO SCH (23:05)
[2017-12-11] MEDS ORDERED: fentaNYL Citrate Inj 100 MCG/2 ML Ampul ONE (23:15)
[2017-12-12] MEDS ORDERED: Heparin - SQ 10,000 UNITS/ML Vial SQ ONE (01:16)
[2017-12-12] MEDS ORDERED: Heparin 10,000 UNITS/10 ML Vial (for IV use) ONE (01:18)
[2017-12-12 05:12] LABS: Anion Gap 10 meq/L (5-15); Blood Urea Nitrogen 9 mg/dL (7-18); Calcium 8.6 mg/dL (8.5-10.1); Carbon Dioxide 22.6 meq/L (21.0-32.0); Chloride 107 meq/L (98-107); Glomerular Filtration Rate Greater Than 89 mL/min (>89); Glucose,Random 113 mg/dL (74-106); Potassium 3.8 meq/L (3.5-5.1); Sodium 140 meq/L (136-145)
[2017-12-12] MEDS: Ampicillin/Sulbactam Inj 3 GM in Sodium Chloride 0.9% Inj 100 ML IV.SIG SCH ×2 (05:20→11:13)
[2017-12-12] MEDS: Sod Chloride 0.9% Inj 1,000 ML IV.CONT SCH (05:56)
[2017-12-12] MEDS: Vancomycin Inj 1,000 MG in Sodium Chlor 0.9% Inj 250 ML IV.SIG SCH (08:58)
[2017-12-12] MEDS: Senna/Docusate Sodium 8.6/50 MG Tablet PO SCH (08:59)
[2017-12-12] MEDS: Thiamine Inj 100 MG in Sodium Chlor 0.9% Inj 100 ML IV.SIG SCH (11:12)
--- NOTE | 2017-12-12 14:33 | P.PNFP ---
Subjective Interval history: Since admission patient has undergone operative treatment of ocular injury. Instructions from ophthalmology not approval for discharge this AM to f/u in office later today. Instructions noted for oral Augmentin therapy which will be written. Patient still noting pain but improved since admission. No other medical problems reported by the patient this AM. Results - Labs Result diagrams: 12/11/17 13:00 12/12/17 04:35 Abnormal lab results 12/12/17 Range/Units 04:35 Random Glucose 113 H (74-106) mg/dL BMP 12/12/17 04:35 Sodium 140 Potassium 3.8 D Chloride 107 Carbon Dioxide 22.6 BUN 9 Creatinine 0.87 Calcium 8.6 Urine 12/11/17 Range/Units 17:50 Urine Color Yellow (Yellw/Straw) Urine Clarity Clear (Clear) Urine pH 7.0 (5.0-8.5) Ur Specific [place] 1.016 (1.002-1.035) Urine Protein Negative (Neg-Trace) mg/dL Urine Glucose (UA) Negative (Negative) mg/dL - Imaging Impressions Face CT 12/11/17 11:43 CONCLUSION: 1. Periorbital left soft tissue swelling and some air within the post septal region. 2. No definite foreign body seen. Chest X-Ray 12/11/17 12:56 CONCLUSION: No acute Cardiopulmonary disease Physical Exam Vital signs: Vital Signs 12/11/17 14:30 12/11/17 16:37 12/11/17 22:35 Temperature 97.7 F 97.8 F 97.6 F Pulse Rate 78 63 82 Respiratory Rate 16 24 14 Blood Pressure 140/78 164/101 H 175/92 H Pulse Oximetry 99 95 99 12/11/17 22:45 12/11/17 23:00 12/11/17 23:15 Temperature Pulse Rate 79 78 77 Respiratory Rate 14 12 12 Blood Pressure 159/86 H 151/88 H 139/88 Pulse Oximetry 98 98 12/11/17 23:30 12/12/17 00:00 12/12/17 08:07 Temperature 98.1 F 97.7 F 98.0 F Pulse Rate 73 70 59 L Respiratory Rate 19 16 16 Blood Pressure 125/73 128/78 131/74 Pulse Oximetry 97 93 L 95 12/12/17 08:59 Temperature Pulse Rate Respiratory Rate 18 Blood Pressure Pulse Oximetry Intake & Output 12/11/17 12/12/17 12/12/17 18:59 06:59 18:59 Intake Total 2251 / 2251 700 / 700 Output Total 5 / 5 Balance 2246 / 2246 700 / 700 Weight 86 kg Intake: IV 1201 / 1201 700 / 700 NS Inj 1,000 ML @ 125 mls/hr IV 1000 / 1000 .CONT .Q8H JERI Rx#:[id number] Unasyn Inj 3 GM In NS Inj 100 100 / 100 200 / 200 ML @ 200 mls/hr IV.SIG Q6H JERI Rx#:[id number] Thiamine Inj 100 MG In NS Inj 101 / 101 100 ML @ 100 mls/hr IV.SIG DAILY JERI Rx#:[id number] Vancomycin Inj 1,000 MG In NS 500 / 500 Inj 250 ML @ 250 mls/hr IV.SIG Q12H JERI Rx#:[id number] Anesthesia Amount 1050 / 1050 Output: Estimated Blood Loss / 5 - Constitutional no acute distress - Routine HEENT Exam Head: Present: normocephalic (eye protector in place over left eye) - Routine Respiratory Exam Present: CTA bilaterally - Routine Cardiovascular Exam Present: RRR - Routine Neurological Exam Present: alert, oriented X3 Assessment and Plan - Assessment (1) Foreign body, intraocular, left eye Code(s): S05.52XA - Penetrating wound with foreign body of left eyeball, initial encounter Status: Acute Plan: Oral Augmentin as directed by ophthalmology. F/u visit with Ophthalmology later today. Protective eye shield to be left in place. Have given Rx for hydrocodone/acetaminophen 5/325 1 q4 hours prn pain #18. [facility] was quer[facility] prior to ordering Scheduled prescription medications. No anomalies were noted. (2) Ruptured globe of left eye Code(s): S05.32XA - Ocular laceration without prolapse or loss of intraocular tissue, left eye, initial encounter Status: Acute (3) Alcohol abuse Code(s): F10.10 - Alcohol abuse, uncomplicated Status: Suspected (4) Nutrition, metabolism, and development symptoms Code(s): R63.8 - Other symptoms and signs concerning food and fluid intake Status: Acute Plan: Fluids: 125ml/hr NS Electrolytes: Within normal limits, replete as needed. Nutrition: NPO pending optho surgery. DVT Prophylaxis: SCDs - Assessment and Plan 52 yo M presents to the ED for evaluation of left eye pain. Patient states that he was at work and he struck a piece of wood with a hammer and a large piece of the wood hit him in the left eye. This patient has a noticeable foreign object penetrating and rupturing the left globe. While in the ED, Dr. Schroeder was consulted and recommended and received patient consent for surgical removal of object. Now s/p surgical procedure. To be discharged today with above noted orders.
--- NOTE | 2017-12-12 17:57 | ECG ---
Date Performed: 12/11/2017 Time Performed: 13:35:17 PTAGE: 52 years EKG: SINUS BRADYCARDIA BORDERLINE ECG NO PREVIOUS TRACING DOCTOR: Antonieta Ramos Interpretating Date/Time 12/12/2017 17:55:33
== END 2017-12-12 12:35 | disposition home or self-care (01) ==
LOC: NEPGCP 11:03 → NEDA 11:03 → NEPC 11:03 → NEPGCP 14:36
PROVIDERS: ADMIT Family Medicine; ATTEND Family Medicine

== ENCOUNTER 2018-01-07 07:22 | Observation (INO) ==
--- NOTE | 2018-01-07 08:34 | ED ---
HPI General Chief complaint: Eye Problems Stated complaint: Left eye Complaint Time Seen by Provider: 01/07/18 07:45 Source: patient Mode of arrival: ambulatory Limitations: no limitations History of Present Illness HPI Narrative: 52-year-old male presents to the emergency room for evaluation of left eye pain and decreased vision for the past several days. Patient had ruptured globe repair on December 11 at this facility after having a small piece of wood impaled in his eye. Patient states since then he has had continuous pain and decreased vision. He went to a follow-up appointment with his director retirement, Dr. Art, yesterday where he was noted to have a traumatic cataract with a hyphema of the left eye. Patient was discharged with eyedrops but does not remember the name of them. He was told to take ibuprofen for pain. He denies any other chronic medical conditions or daily medications. MD chief complaint: eye pain and eye injury Onset (ago): week(s) Onset description: gradual Duration: constant Location: left eye Eye Symptoms: burning, pain, decreased vision and blurry vision Place: work Mechanism: direct trauma Severity: moderate Context: recent eye procedure and trauma Related Data Home Medications Medication Instructions Recorded Confirmed Unable to Obtain Home Meds 01/07/18 01/07/18 Allergies Allergy/AdvReac Type Severity Reaction Status Date / Time No Known Allergies Allergy Verified 01/07/18 07:35 Review of Systems ROS Unobtainable All other systems reviewed negative except as stated in HPI PMFSH Medical History Medical History Patient denies medical problems (Acute) Surgical History Surgical History No history of previous surgery (Acute) Social History Social History Substance History: No History of Abuse Second Hand Smoke Exposure: Yes Smoking Status: Current every day smoker Tobacco Type: Cigarettes Packs Per Day: 0.5 Cigarettes Per Day: 10.0 Years Smoked: 10 Pack-Years: 5.00 How Often Do You Have a Drink Containing Alcohol: Never Recent Travel in [place] within the Last 8 Weeks: No Recent Out of Country Travel within the Last 8 Weeks: No Immunization History Tetanus Immunization: <5 Years Exam Narrative Exam Narrative: GENERAL: Well-nourished, well-developed male in no acute distress. Afebrile. Ambulatory. SKIN: Focused skin assessment warm/dry. HEAD: Normocephalic. EYES: PERRL, EOMI. No proptosis. No purulent discharge. No significant injection. No scleral icterus. There is a obvious hyphema in the left eye obstructing the cornea. Surgical scar at the 7 o'clock position of the left cornea. Patient is able to see light through the hyphema and his hand about 1 foot in front of his eye. NECK: Supple, trachea midline. No JVD or lymphadenopathy. CARDIOVASCULAR: Regular rate and rhythm without murmurs, gallops, or rubs. RESPIRATORY: Breath sounds equal bilaterally. No accessory muscle use. MUSCULOSKELETAL: No cyanosis, or edema. BACK: Nontender without obvious deformity. No CVA tenderness. Course Initial Documented Vital Signs Temperature 98.3 F 01/07/18 07:24 Pulse Rate 69 01/07/18 07:24 Respiratory Rate 16 01/07/18 07:24 Blood Pressure 120/75 01/07/18 07:24 Pulse Oximetry 98 01/07/18 07:24 Last Documented Vital Signs Temperature 98.3 F 01/07/18 07:24 Pulse Rate 69 01/07/18 07:24 Respiratory Rate 16 01/07/18 07:24 Blood Pressure 120/75 01/07/18 07:24 Pulse Oximetry 98 01/07/18 07:24 Medical Decision Making MDM Narrative Medical decision making narrative: 52-year-old male presents to the emergency room for evaluation of decreased vision and left eye pain after surgery almost 1 month ago. Patient was seen by an director retirement yesterday, Dr. Art, and found to have symptoms consistent with traumatic cataract and hyphema which needs urgent surgery to correct his vision. I spoke to Dr. Schroeder today who states that patient will need surgery as soon as possible. I called the office of Dr. Art who is currently in surgery, his front office specialist Dara states he plans to perform surgery today. IV access established basic labs obtained. CBC is unremarkable. CMP only shows evidence of mild hyperkalemia with a potassium of 5.4. Patient was given Lortab in the ER for pain. He is awaiting a bed for same-day surgery. He understands and agrees to plan. Differential Diagnosis Differential Diagnosis: Ruptured globe, foreign body, hyphema, infection Lab Data Result diagrams: 01/07/18 09:00 01/07/18 09:00 Lab Results 01/07/18 01/07/18 01/07/18 Range/Units 09:00 09:00 09:00 WBC 6.3 (4.0-11.0) th/mm3 RBC 4.97 (4.50-5.90) mil/mm3 Hgb 15.4 (13.0-17.0) gm/dL Hct 46.0 (39.0-51.0) % MCV 92.6 (80.0-100.0) fL MCH 31.1 (27.0-34.0) pg MCHC 33.5 (32.0-36.0) % RDW 13.2 (11.6-17.2) % Plt Count 309 (150-450) th/mm3 MPV 7.4 (7.0-11.0) fL Neut % (Auto) 54.2 (16.0-70.0) % Lymph % (Auto) 29.9 (9.0-44.0) % [place] % (Auto) 10.4 H (0.0-8.0) % Eos % (Auto) 4.6 H (0.0-4.0) % Baso % (Auto) 0.9 (0.0-2.0) % Neut # (Auto) 3.4 (1.8-7.7) th/mm3 Lymph # (Auto) 1.9 (1.0-4.8) th/mm3 [place] # (Auto) 0.7 (0.0-0.9) th/mm3 Eos # (Auto) 0.3 (0.0-0.4) th/mm3 Baso # (Auto) 0.1 (0.0-0.2) th/mm3 WBC Differential . Differential Comment Auto diff final PT 9.5 L (9.8-11.6) sec INR 0.9 Ratio APTT 24.0 L (24.3-30.1) sec Sodium 137 (136-145) meq/L Potassium 5.4 H (3.5-5.1) meq/L Chloride 109 H (98-107) meq/L Carbon Dioxide 22.3 (21.0-32.0) meq/L Anion Gap 6 (5-15) meq/L BUN 14 (7-18) mg/dL Creatinine 1.08 (0.60-1.30) mg/dL Estimated GFR 72 L (>89) mL/min Random Glucose 104 (74-106) mg/dL Calcium 9.3 (8.5-10.1) mg/dL Total Bilirubin 0.3 (0.2-1.0) mg/dL AST 15 (15-37) U/L ALT 33 (12-78) U/L Alkaline Phosphatase 80 (45-117) U/L Total Protein 7.8 (6.4-8.2) g/dL Albumin 3.9 (3.4-5.0) g/dL Discharge Plan Discharge Disposition Patient Disposition: 30 Still Patient Discharge Condition Condition: Stable Discharge Details Diagnosis: Hyphema Physicians Team ED Provider: Huseyin Cruz ED Midlevel Provider: Era Lamar Primary Care Provider: Primary Care Sybil Humphrey Attending Provider: Thom Art Status ED Status: Admitted Observation Patient
[2018-01-07 09:24] LABS: Baso # (Auto) 0.1 th/mm3 (0.0-0.2); Baso % (Auto) 0.9 % (0.0-2.0); Eos # (Auto) 0.3 th/mm3 (0.0-0.4); Eos % (Auto) 4.6 % (0.0-4.0); Hemoglobin 15.4 gm/dL (13.0-17.0); Lymph # (Auto) 1.9 th/mm3 (1.0-4.8); Lymph % (Auto) 29.9 % (9.0-44.0); Mean Corpuscular HGB Conc 33.5 % (32.0-36.0); Mean Corpuscular Hemoglobin 31.1 pg (27.0-34.0); Mean Corpuscular Volume 92.6 fL (80.0-100.0); Mean Platelet Volume 7.4 fL (7.0-11.0); Mono # (Auto) 0.7 th/mm3 (0.0-0.9); Mono % (Auto) 10.4 % (0.0-8.0); Neut # (Auto) 3.4 th/mm3 (1.8-7.7); Neut % (Auto) 54.2 % (16.0-70.0); Platelet Count 309 th/mm3 (150-450); Red Blood Count 4.97 mil/mm3 (4.50-5.90); Red Cell Distribution Width 13.2 % (11.6-17.2); White Blood Count 6.3 th/mm3 (4.0-11.0)
[2018-01-07 09:35] LABS: INR 0.9 Ratio; Prothrombin Time 9.5 sec (9.8-11.6)
[2018-01-07 09:53] LABS: Albumin 3.9 g/dL (3.4-5.0); Anion Gap 6 meq/L (5-15); Aspartate Aminotransferase 15 U/L (15-37); Blood Urea Nitrogen 14 mg/dL (7-18); Calcium 9.3 mg/dL (8.5-10.1); Carbon Dioxide 22.3 meq/L (21.0-32.0); Chloride 109 meq/L (98-107); Glomerular Filtration Rate 72 mL/min (>89); Glucose,Random 104 mg/dL (74-106); Potassium 5.4 meq/L (3.5-5.1); Sodium 137 meq/L (136-145)
[2018-01-07 09:56] LABS: Alanine Aminotransferase 33 U/L (12-78); Alkaline Phosphatase 80 U/L (45-117); Total Protein 7.8 g/dL (6.4-8.2)
[2018-01-07] MEDS ORDERED: Lidocaine PF 1% Inj 5 ML Syringe INFILTRATN ONE (12:00)
[2018-01-07] MEDS ORDERED: Glycopyrrolate Inj 1 MG/5 ML Syringe IV.PUSH ONE (12:00)
[2018-01-07] MEDS: Atropine 1% Opth Drops 2 ML Bottle LEFT EYE SCH ×3 (18:34→19:02)
[2018-01-07] MEDS: TROPICAMIDE 0.5% LEFT EYE SCH ×3 (18:34→19:02)
[2018-01-07] MEDS: Moxifloxacin 0.5% Opth Drops 3 ML Bottle LEFT EYE SCH ×3 (18:34→19:02)
[2018-01-07] MEDS: Phenylephrine 2.5% Opth Drops 2 ML Bottle LEFT EYE SCH ×3 (19:27→20:07)
[2018-01-07] MEDS ORDERED: prednisoLONE Acetate 1% Opth Susp 5 ML Bottle LEFT EYE SCH (22:00)
[2018-01-08] MEDS ORDERED: fentaNYL Citrate Inj 100 MCG/2 ML Ampul ONE (00:23)
[2018-01-08] MEDS ORDERED: Ketorolac Inj 30 MG/ML (IVP) Vial ONE (00:38)
[2018-01-08] MEDS ORDERED: Ketorolac Inj 30 MG/ML (IVP) Vial IV.PUSH ONE (00:45)
[2018-01-08 03:42] VITALS: RESP 16; O2SAT 94
[2018-01-08 06:26] LABS: Baso % (Auto) 0.2 % (0.0-2.0); Hematocrit 44.5 % (39.0-51.0); Hemoglobin 15.2 gm/dL (13.0-17.0); Lymph # (Auto) 0.7 th/mm3 (1.0-4.8); Lymph % (Auto) 9.6 % (9.0-44.0); Mean Corpuscular HGB Conc 34.2 % (32.0-36.0); Mean Corpuscular Hemoglobin 31.5 pg (27.0-34.0); Mean Platelet Volume 7.4 fL (7.0-11.0); Mono # (Auto) 0.1 th/mm3 (0.0-0.9); Neut # (Auto) 6.6 th/mm3 (1.8-7.7); Neut % (Auto) 89.2 % (16.0-70.0); Platelet Count 294 th/mm3 (150-450); Red Blood Count 4.84 mil/mm3 (4.50-5.90); Red Cell Distribution Width 13.1 % (11.6-17.2); White Blood Count 7.4 th/mm3 (4.0-11.0)
[2018-01-08 07:17] VITALS: BP 102/59; PULSE 65; TEMP 97.7
--- NOTE | 2018-01-15 14:55 | MP ---
cc: Thom Art MD DATE OF OPERATION: 01/07/2018 DATE OF SURGERY: 01/07/2018 PREOPERATIVE DIAGNOSES: Ruptured globe status post repair, dense traumatic cataract, capsule rupture, retinal detachment, multiple peripheral retinal tears, vitreous hemorrhage, left eye. POSTOPERATIVE DIAGNOSES: Ruptured globe status post repair, dense traumatic cataract, capsule rupture, retinal detachment, multiple peripheral retinal tears, vitreous hemorrhage, left eye. PROCEDURE PERFORMED: Pars plana vitrectomy, pars plana lensectomy, retinal detachment repair and removal of vitreous hemorrhage, endolaser, instillation of 15% C3F8 gas, left eye. COMPLICATIONS: None. ESTIMATED BLOOD LOSS: Less than 1 mL ANESTHESIA: General. INDICATIONS FOR PROCEDURE: Originally, this patient suffered a ruptured globe with a wooden object of his left eye. The patient had the corneal laceration closed primarily and subsequently developed a dense traumatic cataract, increased intraocular pressure, vitreous hemorrhage and retinal detachment. The patient elected for surgical correction in hopes to salvage any possible vision. The patient understands the guarded prognosis with severity of injury. DESCRIPTION OF PROCEDURE: After informed consent was obtained, the patient was brought to the operating room and general anesthesia was established. The left eye was prepped and draped in sterile fashion with Betadine in the conjunctival fornix. A 3-port pars plana vitrectomy was established with a self-retaining infusion cannula. Core vitreous was evacuated with the vitrectomy. The traumatic cataract was removed with vitrectomy via the pars plana. The lens capsule was removed with vitrectomy and forceps. Vitreous hemorrhage was removed via vitrectomy. The underlying retina was visualized and retinal detachment with multiple peripheral holes were seen. Visualization through the edematous cornea was limited. Subretinal fluid was removed via the peripheral retinal tears and endolaser applied. Air-fluid exchange was carried out and the retina reattached. The 15% C3F8 gas was instilled. Trocars removed and sclerotomies closed with 7-0 Vicryl suture. Conjunctiva was reapproximated with 6-0 plain gut. The eye was patched with tobramycin ointment after subconjunctival injection of Ancef and dexamethasone were given. The patient brought to the recovery room in stable condition. He will continue to follow up with [facility] for his postoperative care. MD LOUISE Monsivais/KD , 02:34 PM , 02:44 PM
== END 2018-01-08 11:23 | disposition home or self-care (01) ==
LOC: NEPD 07:22 → HSDC 09:38 → NEDH 09:38 → NEPGCP 14:20 → HSDC 01-08 11:22
PROVIDERS: ADMIT Ophthalmology; ATTEND Ophthalmology

== ENCOUNTER 2018-02-25 07:30 | Observation (INO) ==
[~2018-02-25 07:30] MED LIST: Lidocaine PF 1% Inj 5 ML Syringe INFILTRATN ONE
--- NOTE | 2018-02-25 08:10 | ED ---
HPI General Chief complaint: Eye Problems Stated complaint: Left eye complaint Time Seen by Provider: 02/25/18 07:51 Source: patient Mode of arrival: ambulatory Limitations: other (hostile and not complying with physical exam) History of Present Illness HPI Narrative: The patient is a 52-year-old male status post ruptured globe repair dense traumatic cataract and cough sore rupture with retinal detachment and multiple peripheral retinal tears as well as vitreous hemorrhage of the left eye. He had surgery on January 15 and is returning now with complaint of increased pain and tearing since yesterday. He saw his global engineering manager Dr. Art on this past and was told that everything looks good and that the Surgeon is planning to "cflean up" his eye as per patient MD chief complaint: eye pain, eye redness and eye injury Onset (ago): day(s) (2) Duration: constant Location: left eye Eye Symptoms: redness and foreign body sensation Severity: similar to previous episodes Severity scale (1-10): 9 If Pain, Quality: sharp Context: trauma Associated symptoms: none Treatments Prior to Arrival: none Related Data Patient tetanus UTD: Yes Home Medications Medication Instructions Recorded Confirmed Unable to Obtain Home Meds 01/07/18 02/25/18 Allergies Allergy/AdvReac Type Severity Reaction Status Date / Time No Known Allergies Allergy Verified 01/07/18 07:35 Review of Systems ROS: all other systems reviewed are negative PMFSH History History Provided By: Patient and Medical Record Medical History Medical History Patient denies medical problems (Acute) Surgical History Surgical History No history of previous surgery (Acute) Family History Family History Other Hypertension Social History Social History Substance History: No History of Abuse Second Hand Smoke Exposure: Yes Smoking Status: Current every day smoker Tobacco Type: Cigarettes Packs Per Day: 0.5 Cigarettes Per Day: 10.0 Years Smoked: 10 Pack-Years: 5.00 How Often Do You Have a Drink Containing Alcohol: Never Recent Travel in [facility] within the Last 8 Weeks: No Recent Out of Country Travel within the Last 8 Weeks: No Exam Narrative Exam Narrative: GENERAL: Well-nourished, well-developed patient. SKIN: Focused skin assessment warm/dry. HEAD: Normocephalic. EYES: Unable to fully evaluate the patient's left eye he is squinting and not opening completely. When I tried to explain to him that I need to be able to see so I can examine him he got very agitated and hostile so I stopped. There appears to be monitoring redness and a dilated lens. Some periorbital swelling also seen. No signs of preseptal cellulitis NECK: Supple, trachea midline. No JVD or lymphadenopathy. CARDIOVASCULAR: Regular rate and rhythm without murmurs, gallops, or rubs. RESPIRATORY: Breath sounds equal bilaterally. No accessory muscle use. GASTROINTESTINAL: Abdomen soft, non-tender, nondistended. MUSCULOSKELETAL: No cyanosis, or edema. BACK: Nontender without obvious deformity. No CVA tenderness. Psych Appearance: grossly normal Mental Status: mental status grossly normal Mood: labile mood Affect: irritable affect Thought Process: normal Thought Content: normal Course Reevaluation(s) Reevaluation #1: Informed the patient that we have not gotten a call back from his global engineering manager yet and he stated that he was sent because she is going to go for surgery his 100% sure about it so going to order preop labs and admit him while waiting for ophthalmology to call back. Time: 10:42 Initial Documented Vital Signs Temperature 97.8 F 02/25/18 07:36 Pulse Rate 60 02/25/18 07:36 Respiratory Rate 16 02/25/18 07:36 Blood Pressure 130/88 02/25/18 07:36 Pulse Oximetry 95 02/25/18 07:36 Last Documented Vital Signs Temperature 98.3 F 02/26/18 11:31 Pulse Rate 73 02/26/18 11:31 Respiratory Rate 16 02/26/18 11:31 Blood Pressure 153/81 H 02/26/18 11:31 Pulse Oximetry 95 02/26/18 11:31 Medical Decision Making MDM Narrative Medical Screen Exam Complete: Yes Emergency Medical Condition: Yes Lab Data Result diagrams: 02/25/18 11:00 02/25/18 11:00 Lab Results 02/25/18 02/25/18 02/25/18 Range/Units 11:00 11:00 11:00 WBC 6.3 (4.0-11.0) th/mm3 RBC 4.61 (4.50-5.90) mil/mm3 Hgb 14.6 (13.0-17.0) gm/dL Hct 43.7 (39.0-51.0) % MCV 94.7 (80.0-100.0) fL MCH 31.7 (27.0-34.0) pg MCHC 33.5 (32.0-36.0) % RDW 13.1 (11.6-17.2) % Plt Count 240 (150-450) th/mm3 MPV 7.4 (7.0-11.0) fL Neut % (Auto) 54.6 (16.0-70.0) % Lymph % (Auto) 31.9 (9.0-44.0) % [place] % (Auto) 9.3 H (0.0-8.0) % Eos % (Auto) 3.7 (0.0-4.0) % Baso % (Auto) 0.5 (0.0-2.0) % Neut # (Auto) 3.5 (1.8-7.7) th/mm3 Lymph # (Auto) 2.0 (1.0-4.8) th/mm3 [place] # (Auto) 0.6 (0.0-0.9) th/mm3 Eos # (Auto) 0.2 (0.0-0.4) th/mm3 Baso # (Auto) 0.0 (0.0-0.2) th/mm3 WBC Differential . Differential Comment Auto diff final PT 9.9 (9.8-11.6) sec INR 1.0 Ratio APTT 24.1 L (24.3-30.1) sec Sodium 139 (136-145) meq/L Potassium 4.3 (3.5-5.1) meq/L Chloride 106 (98-107) meq/L Carbon Dioxide 27.0 (21.0-32.0) meq/L Anion Gap 6 (5-15) meq/L BUN 10 (7-18) mg/dL Creatinine 0.83 (0.60-1.30) mg/dL Estimated GFR Greater than 89 (>89) mL/min Random Glucose 98 (74-106) mg/dL Calcium 8.2 L (8.5-10.1) mg/dL Discharge Plan Discharge Disposition Patient Disposition: 01 Discharge Home Discharge Condition Condition: Stable Discharge Order Discharge Orders: Discharge Order (Routine); Ordered 02/26/18 Ordered By: Martha Bradley Ophthalmology Clear for Discharge (Routine); Ordered 02/26/18 Ordered By: Thom Art Discharge Details Anticipated Discharge Date: 02/26/18 Discharge Comment: Mr. Weaver is to go straight to Dr. Art's office from the hospital. Physicians Team ED Provider: Henri Morley Primary Care Provider: UNKNOWN, Attending Provider: Lukasz Latham Status ED Status: Left Department Discharge Information Discharge Date/Time: 02/25/18 13:51
[2018-02-25] MEDS ORDERED: Tetracaine 0.5% Opth Drops 4 ML Bottle LEFT EYE ONE (08:20)
[2018-02-25 11:14] LABS: Baso % (Auto) 0.5 % (0.0-2.0); Eos # (Auto) 0.2 th/mm3 (0.0-0.4); Eos % (Auto) 3.7 % (0.0-4.0); Hematocrit 43.7 % (39.0-51.0); Hemoglobin 14.6 gm/dL (13.0-17.0); Lymph % (Auto) 31.9 % (9.0-44.0); Mean Corpuscular HGB Conc 33.5 % (32.0-36.0); Mean Corpuscular Hemoglobin 31.7 pg (27.0-34.0); Mean Corpuscular Volume 94.7 fL (80.0-100.0); Mean Platelet Volume 7.4 fL (7.0-11.0); Mono # (Auto) 0.6 th/mm3 (0.0-0.9); Mono % (Auto) 9.3 % (0.0-8.0); Neut # (Auto) 3.5 th/mm3 (1.8-7.7); Neut % (Auto) 54.6 % (16.0-70.0); Platelet Count 240 th/mm3 (150-450); Red Blood Count 4.61 mil/mm3 (4.50-5.90); Red Cell Distribution Width 13.1 % (11.6-17.2); White Blood Count 6.3 th/mm3 (4.0-11.0)
[2018-02-25 11:24] LABS: Activated Partial Thrombo Time 24.1 sec (24.3-30.1); Prothrombin Time 9.9 sec (9.8-11.6)
[2018-02-25 11:32] LABS: Anion Gap 6 meq/L (5-15); Blood Urea Nitrogen 10 mg/dL (7-18); Calcium 8.2 mg/dL (8.5-10.1); Chloride 106 meq/L (98-107); Glomerular Filtration Rate Greater Than 89 mL/min (>89); Glucose,Random 98 mg/dL (74-106); Potassium 4.3 meq/L (3.5-5.1); Sodium 139 meq/L (136-145)
--- NOTE | 2018-02-25 12:37 | P.HP ---
History of Present Illness Primary Care Physician: UNKNOWN History of Present Illness: 52-year-old male with no significant medical issues had a traumatic accident 3 weeks ago where a piece of wood stabbed into his left eyeball causing a globe rupture with lens compromise. He was immediately taken to surgery by ophthalmology. He is a capable historian and recounts that he has been taking steroid drops as well as antibiotic drop since the surgery. He still has remaining stitches and states that the doctor said that he would evacuate nitrous gas which was placed in the eye is a treatment at the time of surgical repair. 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 Art today and was told to come to the [place] emergency department in order to be admitted for surgery later today. He says that he is hungry, but he is remaining n.p.o. for expected surgery. He denies any nausea vomiting or diarrhea. He denies any chest pain, shortness of breath, new rashes. Review of Systems All other systems reviewed negative except as stated in HPI [facility] - History History Provided By: Patient, Medical Record - Medical History Medical History: Medical History (Last Reviewed 02/25/18 @ 08:08 by Henri Morley DO) Patient denies medical problems (Acute) - Surgical History Surgical History: Surgical History (Last Reviewed 02/25/18 @ 08:08 by Henri Morley DO) No history of previous surgery (Acute) - Family History Family History: Family History (Last Updated 02/25/18 @ 12:31 by Harvey Blankenship MD) Other Hypertension - Tobacco History Second Hand Smoke Exposure: Yes Tobacco Use In Past 30 Days: Yes Smoking Status: Current every day smoker Tobacco Type: Cigarettes Packs Per Day: 0.5 Years Smoked: 10 - Alcohol History How Often Do You Have a Drink Containing Alcohol: Never - Substance Use History Substance History: No History of Abuse - Travel History Recent Travel in the [place] Within the Last 8 Weeks: No Recent Travel Out of the Country Within the Last 8 Weeks: No - Immunization History Tetanus Immunization: <5 Years Medications and Allergies Active Medications: Active Medications Al Hydroxide/Mg Hydroxide (Milk Of Magntheodore Liq) 30 ml PO Q12H PRN PRN Reason: Mild Constipation Ketorolac Tromethamine (Toradol Inj) 30 mg IV.PUSH ONCE ONE Stop: 02/25/18 12:31 Morphine Sulfate (Morphine Inj) 2 mg IV.PUSH Q3H PRN PRN Reason: PAIN SCALE 1 TO 10 Ondansetron HCl (Zofran Inj) 4 mg IV.PUSH Q6H PRN PRN Reason: NAUSEA OR VOMITING Allergies Allergy/AdvReac Type Severity Reaction Status Date / Time No Known Allergies Allergy Verified 01/07/18 07:35 Home Medications Medication Instructions Recorded Confirmed Type Unable to Obtain Home Meds 01/07/18 02/25/18 History Exam Vital signs: Vital Signs 02/25/18 07:36 Temperature 97.8 F Pulse Rate 60 Respiratory Rate 16 Blood Pressure 130/88 Pulse Oximetry 95 Intake & Output 02/24/18 02/25/18 02/25/18 18:59 06:59 18:59 Weight 92.079 kg Narrative: GENERAL: AAOx3, in discomfort from left eye pain, adequate nutrition SKIN: Warm and dry, no rashes. HEAD: Atraumatic. Normocephalic. EYES: Both eyes are tearing from irritation of left eye, left eye unable to be examined as patient is squinting it and unable to cooperate due to pain. ENT: No nasal bleeding or discharge. Moist mucous membranes. Nonerythematous oropharynx. NECK: Trachea midline. No JVD. Thyroid size within normal limits. CARDIOVASCULAR: Regular rate and rhythm. No murmur, no gallops, no rubs. RESPIRATORY: Clear and equal to auscultation bilaterally. No crackles, no wheezes. No accessory muscle use. GASTROINTESTINAL: Abdomen soft, non-tender, nondistended, normal active bowel sounds. Hepatic and splenic margins not palpable. MUSCULOSKELETAL: Extremities without clubbing or cyanosis. No obvious deformities. No edema. NEUROLOGICAL: Awake and alert. No obvious cranial nerve deficits. Motor grossly within normal limits. No focal deficits. Five out of 5 muscle strength in the arms and legs. Normal speech. PSYCHIATRIC: Appropriate mood and affect; insight and judgment normal. Results - Labs CBC & Chem 7: 02/25/18 11:00 02/25/18 11:00 Labs: Laboratory Results - last 24 hr 02/25/18 02/25/18 02/25/18 11:00 11:00 11:00 WBC 6.3 RBC 4.61 Hgb 14.6 Hct 43.7 MCV 94.7 MCH 31.7 MCHC 33.5 RDW 13.1 Plt Count 240 MPV 7.4 Neut % (Auto) 54.6 Lymph % (Auto) 31.9 [place] % (Auto) 9.3 H Eos % (Auto) 3.7 Baso % (Auto) 0.5 Neut # (Auto) 3.5 Lymph # (Auto) 2.0 [place] # (Auto) 0.6 Eos # (Auto) 0.2 Baso # (Auto) 0.0 WBC Differential . Differential Comment Auto diff final PT 9.9 INR 1.0 APTT 24.1 L Sodium 139 Potassium 4.3 Chloride 106 Carbon Dioxide 27.0 Anion Gap 6 BUN 10 Creatinine 0.83 Estimated GFR Greater than 89 Random Glucose 98 Calcium 8.2 L Caprini VTE Risk Assessment Caprini VTE Risk Assessment: No/Low Risk (score <= 1) VTE Pharmacological Exception Reason: High risk for bleeding Caprini Risk Assessment Model: Point Value = 1 Point Value = 2 Point Value = 3 Point Value = 5 Age 41-60 Minor surgery BMI > 25 kg/m2 Swollen legs Varicose veins or History of unexplained or recurrent spontaneous Oral contraceptives or hormone replacement Sepsis (< 1 month) Serious lung disease, including pneumonia (< 1 month) Abnormal pulmonary function Acute myocardial infarction Congestive heart failure (< 1 month) History of inflammatory bowel disease Medical patient at bed rest Age 61-74 Arthroscopic surgery Major open surgery (> 45 min) Laparoscopic surgery (> 45 min) Malignancy Confined to bed (> 72 hours) Immobilizing plaster cast Central venous access Age >= 75 History of VTE Family history of VTE Factor V Leiden Prothrombin [id number] Lupus anticoagulant Anticardiolipin antibodies Elevated serum homocysteine Heparin-induced thrombocytopenia Other congenital or acquired thrombophilia Stroke (< 1 month) Elective arthroplasty Hip, pelvis, or leg fracture Acute spinal cord injury (< 1 month) Prophylaxis Regimen: Total Risk Factor Score Risk Level Prophylaxis Regimen 0-1 Low Early ambulation 2 Moderate Order ONE of the following: *Sequential Compression Device (SCD) *Heparin 5000 units SQ BID 3-4 Higher Order ONE of the following medications: *Heparin 5000 units SQ TID *Enoxaparin/Lovenox 40 mg SQ daily (WT < 150 kg, CrCl > 30 mL/min) *Enoxaparin/Lovenox 30 mg SQ daily (WT < 150 kg, CrCl > 10-29 mL/min) *Enoxaparin/Lovenox 30 mg SQ BID (WT < 150 kg, CrCl > 30 mL/min) AND/OR *Sequential Compression Device (SCD) 5 or more Highest Order ONE of the following medications: *Heparin 5000 units SQ TID (Preferred with Epidurals) *Enoxaparin/Lovenox 40 mg SQ daily (WT < 150 kg, CrCl > 30 mL/min) *Enoxaparin/Lovenox 30 mg SQ daily (WT < 150 kg, CrCl > 10-29 mL/min) *Enoxaparin/Lovenox 30 mg SQ BID (WT < 150 kg, CrCl > 30 mL/min) AND *Sequential Compression Device (SCD) Assessment and Plan - Plan Left eye pain Traumatic globe rupture with lens compromise 3 weeks ago, treated done by ophthalmology, follow-ups since then Requested by ophthalmology to come to the hospital for surgical evacuation of nitrous bubble and suture removal. Patient is currently n.p.o. and ready for surgery, ER physician has been unable to contact circuit breaker supervisor Will place patient in observation and await surgery Morphine IV for pain Toradol IV to address inflammatory component DVT prophylaxis Patient is ambulatory and adding a blood thinner at this point with placement high risk given expected surgery today
[2018-02-25] MEDS ORDERED: Ketorolac Inj 30 MG/ML (IVP) Vial IV.PUSH ONE (13:30)
[2018-02-25] MEDS: Cyclopentolate 1% Opth Drops 2 ML Bottle LEFT EYE SCH ×3 (21:27→21:55)
[2018-02-25] MEDS: Tropicamide 1% Opth Drops 15 ML Bottle LEFT EYE SCH ×3 (21:27→21:56)
[2018-02-25] MEDS: Atropine 1% Opth Drops 2 ML Bottle LEFT EYE SCH ×3 (21:27→21:55)
[2018-02-25] MEDS: Phenylephrine 2.5% Opth Drops 2 ML Bottle LEFT EYE SCH ×3 (21:27→21:55)
[2018-02-26] MEDS ORDERED: [UNRECOGNIZED DRUG - OTHER] I-OCULAR ONE ×2 (00:35→00:42)
[2018-02-26] MEDS ORDERED: prednisoLONE Acetate 1% Opth Susp 5 ML Bottle LEFT EYE ONE (01:00)
[2018-02-26] MEDS: Atropine 1% Opth Drops 2 ML Bottle LEFT EYE SCH (02:29)
[2018-02-26] MEDS: Cyclopentolate 1% Opth Drops 2 ML Bottle LEFT EYE SCH (02:29)
[2018-02-26] MEDS: Phenylephrine 2.5% Opth Drops 2 ML Bottle LEFT EYE SCH (02:29)
[2018-02-26] MEDS: Tropicamide 1% Opth Drops 15 ML Bottle LEFT EYE SCH (02:29)
[2018-02-26] MEDS ORDERED: fentaNYL Citrate Inj 100 MCG/2 ML Ampul ONE (02:30)
[2018-02-26] MEDS ORDERED: *morphine SULFATE 4 MG/ML PERIprocedure ONLY ONE (02:39)
[2018-02-26] MEDS ORDERED: Ketorolac Inj 30 MG/ML (IVP) Vial IV.PUSH PRN (03:00)
[2018-02-26] MEDS ORDERED: Moxifloxacin 0.5% Opth Drops 3 ML Bottle LEFT EYE ONE (03:00)
[2018-02-26 07:58] VITALS: O2SAT 95
[2018-02-26] MEDS: Morphine Sulfate Inj 2 MG/ML Vial IV.PUSH PRN ×2 (08:27→11:54)
[2018-02-26] MEDS ORDERED: prednisoLONE Acetate 1% Opth Susp 5 ML Bottle LEFT EYE SCH (09:00)
[2018-02-26] MEDS ORDERED: Moxifloxacin 0.5% Opth Drops 3 ML Bottle LEFT EYE SCH (09:00)
--- NOTE | 2018-02-26 11:25 | P.PN ---
Subjective Interval history: Follow-up Traumatic globe rupture with lens, status post repair February 26, 2018-patient seen and examined, he has had his eye surgery performed this morning and patient is complaining of severe right eye pain, and thinks he had some stitches rubbing against his eye. Physical Exam Vital signs: Vital Signs 02/25/18 13:20 02/25/18 13:42 02/25/18 15:09 Temperature 97.6 F 97.5 F L Pulse Rate 60 54 L 50 L Respiratory Rate 17 16 18 Blood Pressure 120/75 123/83 122/81 Pulse Oximetry 98 96 95 02/25/18 19:28 02/25/18 21:06 02/26/18 02:19 Temperature 97.8 F 97.7 F Pulse Rate 65 49 L 68 Respiratory Rate 18 17 15 Blood Pressure 120/77 130/83 158/79 H Pulse Oximetry 96 95 02/26/18 02:30 02/26/18 02:45 02/26/18 04:00 Temperature 97.9 F Pulse Rate 67 67 56 L Respiratory Rate 16 16 17 Blood Pressure 147/78 H 125/71 89/51 L Pulse Oximetry 93 L 92 L 93 L 02/26/18 05:02 02/26/18 07:55 Temperature 97.9 F Pulse Rate 65 Respiratory Rate 18 Blood Pressure 138/69 108/58 L Pulse Oximetry 95 Intake & Output 02/25/18 02/26/18 02/26/18 18:59 06:59 18:59 Intake Total 1200 / 1200 Output Total 900 / 900 Balance 300 / 300 Weight 92.6 kg Intake: Anesthesia Amount 1200 / 1200 Output: Urine 900 / 900 Other: # Voids 0 Date of Last Bowel Movement 02/24/18 Weight On Admission 92.6 kg Narrative: GENERAL: NAD SKIN: Warm and dry. HEAD: Normocephalic. EYES: No scleral icterus. patch covering the left eye NECK: Supple, trachea midline. No JVD or lymphadenopathy. CARDIOVASCULAR: Regular rate and rhythm without murmurs, gallops, or rubs. RESPIRATORY: Breath sounds equal bilaterally. No accessory muscle use. GASTROINTESTINAL: Abdomen soft, non-tender, nondistended. MUSCULOSKELETAL: No cyanosis, or edema. BACK: Nontender without obvious deformity. No CVA tenderness. Results - Labs CBC & Chem 7: 02/25/18 11:00 02/25/18 11:00 Laboratory Results - last 24 hr 02/25/18 02/25/18 11:00 11:00 PT 9.9 INR 1.0 APTT 24.1 L Sodium 139 Potassium 4.3 Chloride 106 Carbon Dioxide 27.0 Anion Gap 6 BUN 10 Creatinine 0.83 Estimated GFR Greater than 89 Random Glucose 98 Calcium 8.2 L Assessment and Plan - Assessment (1) Foreign body, intraocular, left eye Code(s): S05.52XA - Penetrating wound with foreign body of left eyeball, initial encounter Status: Acute (2) Ruptured globe of left eye Code(s): S05.32XA - Ocular laceration without prolapse or loss of intraocular tissue, left eye, initial encounter Status: Acute - Plan 52-year-old man with Traumatic globe rupture with lens Status post repair by ophthalmology today February 26, 2018 Treatment per ophthalmology Patient will be discharged home Discharge patient to home Condition on discharge: Improved Regular Diet as tolerated Ad Noemí activity Rx written: None Follow-up with ophthalmology today 02/26/18
[2018-02-26 11:35] VITALS: BP 153/81; PULSE 73; RESP 16; TEMP 98.3
[2018-02-26] MEDS ORDERED: Ketorolac Inj 30 MG/ML (IVP) Vial IV.PUSH ONE (13:00)
--- NOTE | 2018-02-26 21:29 | ECG ---
Date Performed: 02/25/2018 Time Performed: 19:39:45 PTAGE: 52 years EKG: SINUS BRADYCARDIA BORDERLINE ECG PREVIOUS TRACING : 12/11/2017 13.35 Since the previous tracing, no significant change noted DOCTOR: Sheldon Langford Interpretating Date/Time 02/26/2018 21:27:49
--- NOTE | 2018-03-05 21:53 | MP ---
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 PROCEDURE: Pars plana vitrectomy, epiretinal membrane/proliferative vitreoretinopathy removal, endolaser, tractional retinal detachment repair, insertion of 5000 [place] of silicone oil, inferior peripheral iridectomy, left eye. ANESTHESIA: General. COMPLICATIONS: None. ESTIMATED BLOOD LOSS: Less than 1 mL. INDICATIONS FOR PROCEDURE: This patient previously suffered a ruptured globe, which was repaired primarily by Dr. Schroeder. The remaining traumatic cataract and retinal detachment was later repaired with a vitrectomy, lensectomy and intraocular gas placement. As the intraocular gas resolved, the proliferative vitreoretinopathy was seen along with a substantial epiretinal membrane causing a tractional detachment through the macula. The patient noticed improved, but very distorted vision. He elected for surgical repair to salvage the eye and any possible vision. The patient understands that the vision will likely be compromised with the severity of his original injury. PROCEDURE NOTE: After informed consent was obtained, patient was brought to the operating room. General anesthesia was established. The left eye was prepped and draped in sterile fashion with Betadine in the conjunctival fornix. A 3-port pars plana vitrectomy was established with a self-retaining infusion cannula. The proliferative tissue overlying the macula was highlighted with ICG and removed with ILM forceps. The retina had renewed mobility through the macula and improved contour. A small hole was noted above the superior arcade which was treated with endolaser. Air-fluid exchange was carried out and an inferior peripheral iridectomy was made with the vitrector. 5000 cent[place] silicone oil was instilled. Trocars removed and sclerotomies closed with 7-0 Vicryl suture. Conjunctiva was reapproximated with 6-0 plain gut. Subconjunctival injection of Ancef and dexamethasone were given. The eye is patched with tobramycin ointment. The patient was brought to the recovery room in stable condition and will continue to follow up with [facility] for his postoperative care. MD LOUISE Monsivais/jose , 07:24 PM , 07:32 PM
== END 2018-02-26 13:42 | disposition home or self-care (01) ==
LOC: NEPC 07:30 → NEDA 07:30 → NEPHCDU 13:38
PROVIDERS: ADMIT Hospitalist; ATTEND Hospitalist